=== PATIENT | male | born 1965 | race Caucasian/White ===

== ENCOUNTER 2023-09-16 08:02 | Emergency (ER) | payer OTHER ==
[~2023-09-16] VITALS: Ht 182.9 cm; Wt 112.0 kg
[~2023-09-16 08:02] MED LIST: IBUPROFEN200 M1 PO; LOTREL 10-20 M1 EACH PO; MEDROL4 M1 PO; NORCO 5-325 TA1 EACH PO; PERCOCET 5-3251 EACH PO; PERCOCET 7.5-31 EACH PO; PRILOSEC20 MG PO; THALITONE15 MG PO
[2023-09-16 08:24] LABS: BILIRUBIN, URINE NEGATIVE (negative); BLOOD/HGB, URINE NEGATIVE (Negative); KETONE, URINE NEGATIVE (Negative); LEUK ESTERASE, URINE NEGATIVE (negative); NITRITE, URINE NEGATIVE (negative); PH, URINE 7.5 (5-7)
[2023-09-16 08:50] LABS: BASOPHILS 0.6 % (0-2); EOSINOPHILS 0.2 % (0-6); HEMATOCRIT 41.8 % (35.0-50.0); HEMOGLOBIN 14.6 g/dL (12.0-18.0); LYMPHOCYTES 7.2 % (24-44); MCH 30.7 (27-36); MCHC 35.1 g/dl (30-36); MCV 87.5 fl (81-99); MONOCYTES 6.8 % (0-12); NEUTROPHILS 85.2 % (39-80); PLATELET COUNT 256 K/uL (140-440); RBC 4.78 M/ul (4.3-5.7); RDW 12.9 (10.5-15.0)
[2023-09-16 08:59] LABS: ALBUMIN 3.9 g/dL (3.4-5.0); ALBUMIN/GLOBULIN RATIO 1.34 (1.1-2.4); ANION GAP 12.1 (7-21); BILIRUBIN, TOTAL 1.5 ng/dL (0.2-1.0); BUN/CREATININE RATIO 14.13 (6.0-28.6); CALCIUM 8.6 mg/dL (8.5-10.1); CREATININE, SERUM 0.92 mg/dL (0.70-1.30); POTASSIUM 3.1 mmol/L (3.5-5.1); PROTEIN, TOTAL 6.8 g/dL (6.4-8.2)
[2023-09-16] MEDS ORDERED: AMOX TR-K CLV1 EAC1 PO (09:52)
[2023-09-16 10:06] VITALS: BP 131/82
== END 2023-09-16 10:05 | disposition home or self-care (01) ==
LOC: ED 08:02
PROVIDERS: Emergency Medicine
DX: K57.32 Diverticulitis of large intestine without perforation or abscess without bleeding (principal); I10 Essential (primary) hypertension; Z79.899 Other long term (current) drug therapy
CPT/HCPCS: 36415; 74177; 80053; 81003; 83690; 85025; 99284-25; Q9967

== ENCOUNTER 2024-02-14 06:20 | Day surgery (SDC) | payer OTHER ==
[~2024-02-14] VITALS: Ht 182.9 cm; Wt 104.5 kg
[~2024-02-14 06:20] MED LIST changes: +AMOX TR-K CLV1 EAC1 PO; +ATORVASTATIN CA40 MG PO; +MIDAZOLAM HCL 5 MG/5 ML VIAL IV PRN; +POTASSIUM CHLO10 ME1 PO; +PREDNISOLONE ACE5 ML OD; +TIMOLOL MALEATE5 M2 OD; +fentaNYL citrate 100 MCG/2 ML VIAL IV PRN
[2024-02-14 06:33] VITALS: BP 133/75
[2024-02-14] MEDS ORDERED: fentaNYL citrate 100 MCG/2 ML VIAL ONE (06:49)
[2024-02-14] MEDS ORDERED: MIDAZOLAM HCL 5 MG/5 ML VIAL ONE (06:49)
--- NOTE | 2024-02-14 06:55 | NUR ---
SISTER IN ROOM WITH PT. DENIES ANY NEEDS.
[2024-02-14] MEDS ORDERED: IBLOOD GLUCOSE TEST STRIP 1 EA TEST VI PRN (07:00)
[2024-02-14] MEDS ORDERED: LACTATED RINGER'S 1,000 ML IV SCH (07:00)
[2024-02-14] MEDS ORDERED: LIDOCAINE HCL 1% 5 ML SDV INJ ONE (07:00)
--- NOTE | 2024-02-14 07:17 | NUR ---
VISITED DURING SPIRITUAL CARE ROUNDS. PT IN GOOD SPIRITS, SUPPORTED BY FAMILY IN ROOM; STRONG RELATIONAL AND MONA RESOURCES IN EVIDENCE. PAPER PRODUCTION ENGINEER PROVIDED SUPPORTIVE PRESENCE, HOSPITALITY, PRAYER. PT AND FAMILY EXPRESSED GRATITUDE.
--- NOTE | 2024-02-14 08:32 | NUR ---
02/14/24 0832 Althea Phillip 0807- PT ARRIVES TO THE PACU ON LEFT SIDE WITH 1L OF 02 WITH A NC. RESP EVEN AND UNLABORED. PT HAS EYES OPEN AND IS TALKING WITH RN'S. VSS. ABDOMEN IS SOFT AND NONDISTENDED. PT IS ENCOURAGES TO DEEP BREATHE AND PASS GAS. PT VERBALIZES UNDERSTANDING. ALL MONITORS IN PLACE. LR INFUSING IN RIGHT HAND. 0815- PT EASILY FALLS BACK TO SLEEP AND IS ENCOURAGED OFF AND ON TO BREATHE DEEPLY. PT ROLLS TO BACK INDEPENDENTLY. PT EASILY ARROUSABLE WITH VERBAL STIMULI.
[2024-02-14 08:42] VITALS: BP 93/59
--- NOTE | 2024-02-16 12:11 | OR ---
[facility] [address] [place], [place] [address] Signed DATE OF OPERATION: 02/14/2024 SURGEON: Susie Morris MD PREOPERATIVE DIAGNOSIS: Colon screening. POSTOPERATIVE DIAGNOSES: 1. Diverticulosis sigmoid. 2. Small polyps of sigmoid and rectum. PROCEDURE: Total colonoscopy to cecum with cold morcellation polypectomy x2. ANESTHESIA: Intravenous sedation; fentanyl 150 mcg, Versed 8 mg. INDICATION: This 58-year-old white man is a patient of ANDRES Hahn. He is referred for screening colonoscopy. He has no current symptoms of bleeding, diarrhea or constipation and no family history of colon cancer. His father did have polyps as did his sister. He is admitted at this time to undergo colonoscopy for screening. He understands the risk of bleeding, infection, and perforation. FINDINGS: The prep was good. Complete colonoscopy was undertaken of the cecum with full intubation of the cecum. He had diverticula of the sigmoid and left colon. There were two very small polyps, one in the sigmoid and the other in the rectum, both excised completely. There were no other findings of note. PROCEDURE IN DETAIL: The patient was brought to the endoscopy suite and placed in the lateral decubitus position, given intravenous sedation to the point of slurred speech and nystagmus. Digital rectal examination was normal. The Olympus video colonoscope was passed in the rectum and manipulated throughout the colon ultimately intubating the cecum itself. The ileocecal valve and appendiceal orifice were normal. Scope was withdrawn from that point and examination showed no sign of abnormality into the left colon where diverticula were once again seen and at the sigmoid, a small polyp, possibly hyperplastic, this was excised with cold morcellation technique. Further withdrawal showed another similar such polyp in the rectum also excised. Retroflexed view was Electronically Signed By: USSIE MORRIS MD 02/16/24 1211 PATIENT NAME: MIRACLE VIGIL OPERATIVE REPORT DATE OF : 63 REPORT #: [id number] PHYSICIAN: SUSIE MORRIS MD PCP: LUIS BABB PAC REPORT IS CONFIDENTIAL AND NOT TO BE RELEASED WITHOUT AUTHORIZATION [facility] [address] [place], [place] [address] Signed normal. The scope was removed and the patient was taken to the recovery room in good condition. CONCLUDING DIAGNOSES: Polyps x2 and diverticulosis. PLAN: Recommend repeat colonoscopy in seven years based on recent guidelines, sooner if symptoms should occur. He will return to the ongoing care of NADRES Hahn. MD DIDIER Wayne/MODL /[id number] cc: ANDRES Hahn. Copies: ~ Electronically Signed By: SUSIE MORRIS MD 02/16/24 1211 PATIENT NAME: MIRACLE VIGIL OPERATIVE REPORT DATE OF : 63 REPORT #: [id number] PHYSICIAN: SUSIE MORRIS MD PCP: LUIS BABB PAC REPORT IS CONFIDENTIAL AND NOT TO BE RELEASED WITHOUT AUTHORIZATION
== END 2024-02-14 08:55 | disposition home or self-care (01) ==
LOC: DS 06:20
PROVIDERS: ATTEND Surgery
PROC: 0DBN8ZX Excision of Sigmoid Colon, Via Natural or Artificial Opening Endoscopic, Diagnostic (ICD-10-PCS; 2024-02-14)
PROC: 0DBP8ZX Excision of Rectum, Via Natural or Artificial Opening Endoscopic, Diagnostic (ICD-10-PCS; principal; 2024-02-14 07:30)
DX: Z12.11 Encounter for screening for malignant neoplasm of colon (principal); K63.5 Polyp of colon; K62.1 Rectal polyp; K57.30 Diverticulosis of large intestine without perforation or abscess without bleeding; I10 Essential (primary) hypertension; Z79.899 Other long term (current) drug therapy; Z87.19 Personal history of other diseases of the digestive system
CPT/HCPCS: 88305; 99153; G0500; J2250; J3010; J7121

== ENCOUNTER 2025-03-15 07:55 | Day surgery (SDC) | payer OTHER ==
[~2025-03-15] VITALS: Ht 182.9 cm; Wt 109.0 kg
[~2025-03-15 07:55] MED LIST changes: +AMLODIPINE-BEN1 EAC5 PO; +BRIMONIDINE TART5 ML OD; +CEFAZOLIN SODIUM 2 GM in SODIUM CHLORIDE 0.9% 100 ML IV SCH; +CHLORTHALIDONE25 MG PO; +DORZOLAMIDE-TIM10 ML OD; +HEParin SOD (PORCINE) 5,000 UNIT/ML SDV SUB-Q SCH; +IBLOOD GLUCOSE TEST STRIP 1 EA TEST VI PRN; +LACTATED RINGER'S 1,000 ML IV SCH; +LIDOCAINE HCL 1% 5 ML SDV INJ ONE; -MIDAZOLAM HCL 5 MG/5 ML VIAL IV PRN; +PRILOSEC OTC20 MG PO; -PRILOSEC20 MG PO; -fentaNYL citrate 100 MCG/2 ML VIAL IV PRN
[2025-03-15 08:08] VITALS: BP 148/87
[2025-03-15] MEDS ORDERED: DAILY VALUE1 EACH PO (08:11)
[2025-03-15] MEDS ORDERED: SEVOFLURANE 250 ML BTL INH ONE (10:31)
[2025-03-15] MEDS ORDERED: KETAMINE in NS 50 MG/5 ML SYR ONE (10:48)
[2025-03-15] MEDS ORDERED: fentaNYL citrate 100 MCG/2 ML VIAL ONE (10:48)
[2025-03-15] MEDS ORDERED: LIDOCAINE HCL 4% 5 ML AMP ONE (10:49)
[2025-03-15] MEDS ORDERED: ACETAMINOPHEN 1,000 MG/100 ML VIAL ONE (10:52)
[2025-03-15] MEDS ORDERED: DEXAMETHASONE SOD PHOS 4 MG/ML VIAL ONE (10:52)
[2025-03-15] MEDS ORDERED: ROCURONIUM BROMIDE 50 MG/5 ML SYR ONE ×3 (10:52→12:34)
[2025-03-15] MEDS ORDERED: LIDOCAINE HCL 2% 5 ML SDV ONE (10:52)
[2025-03-15] MEDS ORDERED: HYDROmorphone HCL 1 MG/ML SYR IV PRN (11:30)
[2025-03-15] MEDS ORDERED: NALOXONE HCL 0.4 MG SYR IV PRN ×2 (11:30→13:15)
[2025-03-15] MEDS ORDERED: KETOROLAC TROMETHAMINE 30 MG/ML VIAL IV PRN (11:30)
[2025-03-15] MEDS ORDERED: IBLOOD GLUCOSE TEST STRIP 1 EA TEST VI PRN (11:30)
[2025-03-15] MEDS ORDERED: fentaNYL citrate 50 MCG/ML SDV IV PRN (11:30)
[2025-03-15] MEDS ORDERED: SUGAMMADEX SODIUM 200 MG/2 ML ML ONE (12:12)
--- NOTE | 2025-03-15 12:56 | NUR ---
03/15/25 1256 Sheets,Christina 1246 PT ARRIVED TO PACU, PT WAKES EASILY TALKING TO RN. RN REORIENTING PT TO PACU. VSS. 1250 O2 REMOVED AND PT REPORTS 1/10 PAIN AND TOLERABLE AT THIS TIME. PT COUGHING OFF AND ON. RN HELPS PT BRACE SURGICAL SITE WHILE COUGHING 1255 O2 DECREASED TO 88% AND DEEP BREATHING ENCOURAGED, O2 INCREASED TO LOW 90S.
[2025-03-15] MEDS ORDERED: IBUPROFEN600 MG PO (13:10)
[2025-03-15] MEDS ORDERED: OXYCODON-ACETA1 EAC2 PO (13:11)
[2025-03-15] MEDS ORDERED: ACETAMINOPHEN500 MG PO (13:12)
[2025-03-15] MEDS ORDERED: IBUPROFEN 600 MG TAB PO PRN (13:15)
[2025-03-15] MEDS ORDERED: PROCHLORPERAZINE EDISYLATE 10 MG/2 ML VIAL IV PRN (13:15)
[2025-03-15] MEDS ORDERED: ACETAMINOPHEN 500 MG TAB PO PRN (13:15)
[2025-03-15] MEDS ORDERED: LACTATED RINGER'S 1,000 ML IV SCH (13:15)
[2025-03-15] MEDS ORDERED: OXYCODONE/APAP 7.5/325 TAB PO PRN (13:15)
[2025-03-15 13:28] VITALS: BP 135/85
--- NOTE | 2025-03-15 13:31 | NUR ---
1322- PT IS TRANSFERED TO DAY SURGERY. BEDSIDE REPORT RECEIVED. PT REPORTS 2/10 PAIN AND IS A LITTLE DIZZY BUT DENIES NAUSEA. PT SIPPING ON WATER. LR IFUSING. PT IS LAUGHING AND JOKING WITH FAMILY AT BEDSIDE. VSS. CALL LIGHT IN REACH AND BED IS LOCKED IN THE LOWEST POSITION. DISCHARGE CRITERIA DISCUSSED AND PT IS UNDERSTANDING. PT REQUESTING APPLE SAUCE AND COFFEE.
[2025-03-15 14:22] VITALS: BP 147/78
--- NOTE | 2025-03-15 14:25 | NUR ---
1420- PT PRESCRIPTION GIVEN TO SISTER PER REQUEST. VSS. SURGICAL SITE ASSESSED. PT IS AWAKE AND TALKING WITH RN AND FAMILY AT BEDSIDE. PT REPORTS PAIN IS A 2/10. PT DENIES NAUSEA. PT WAS ABLE TO EAT APPLE SAUCE AND DRINKING WATER AND COFFEE. QUESTIONS AND CONCERNS ANSWERED. DISCHARGE PAPERWORK GONE OVER.
--- NOTE | 2025-03-15 15:15 | NUR ---
1425- PT IS ABLE TO MAINTAIN O2 LEVELS AT THIS TIME. O2 TURNED OFF.
[2025-03-15 15:20] VITALS: BP 157/81
--- NOTE | 2025-03-15 15:23 | NUR ---
1520- PT IS IN THE STRETCHER. PT DENIES NAUSEA AND REPORTS 2/10 PAIN. PT WOULD LIKE TO "TRY" TO USE THE RESTROOM. VSS. IV IS LR LOCKED. BED IS LOCKED IN THE LOWEST POSITION AND CALL LIGHT IN REACH.
--- NOTE | 2025-03-15 15:45 | NUR ---
1530- PT SITTING UP AT THE SIDE OF THE BED. PT UP TO USE THE RESTROOM WITH A STEADY AND EVEN GAIT. PT IS ABLE TO VOID 350ML OF CLEAR YELLOW URINE AND AMBULATE BACK TO HIS ROOM INDEPENDENTLY. PT GETTING DRESSED WITH RN ASSISTANCE. 1540- PT IS DRESSED. IV REMOVED. PT HAS ALL BELONGINGS. ALL QUESTIONS AND CONCERNS ANSWERES. PT IS ABLE TO TRANSFER TO HOSPITAL WHEELCHAIR WITH NO ISSUES. PT DC'S FROM DAY SURGERY AT THIS TIME.
--- NOTE | 2025-03-16 12:14 | OR ---
[facility] [address] [place], [place] [address] Signed DATE OF OPERATION: 03/15/2025 SURGEON: Susie Morris MD PREOPERATIVE DIAGNOSIS: Symptomatic right inguinal hernia. POSTOPERATIVE DIAGNOSIS: Symptomatic right inguinal hernia, indirect and large cord lipoma. PROCEDURES: 1. Repair of right inguinal hernia with implantation of Prolene mesh underlay technique. 2. Excision of a large cord lipoma. ANESTHESIA: General endotracheal; Moisés Funez, DIRECTOR GLOBAL SALES and multiple 10 mL of 0.25% Marcaine with epinephrine. INDICATION: This 235 pounds white man is a patient Luis Liendiamond and was referred for consideration of right inguinal hernia. He had undergone a colonoscopy a year ago and did well by that. He has developed a bulge in the right groin which is increasingly uncomfortable. Clinical examination confirms a right inguinal hernia which is reducible. He has no urinary outlet obstructive symptoms though he has had an episodic cough recently which has cleared entirely. He has no constipation problems. He is admitted at this time to undergo repair of the right inguinal hernia. He understands the risk of bleeding, infection, recurrence, chronic pain, and other unforeseen complications. Understanding this, he wished to proceed. FINDINGS: A very bulky hernia was noted indeed. Near attenuation of the external oblique was noted. Cord was smooth. Once mobilized from the floor, showed an indirect hernia sac which was wide and funnel shaped, but did represent dominantly indirect hernia. Additionally, there was a rather large cord lipoma which was also excised. Repair consisted of invagination of the hernia sac with implantation of Prolene mesh in an underlay technique. Excision of cord lipoma was accomplished as well. DESCRIPTION OF PROCEDURE: The patient was brought to the operating room, given a general endotracheal anesthetic. Preoperative antibiotic of Ancef was given. Sequential compression device stockings Electronically Signed By: SUSIE MORRIS MD 03/16/25 1214 PATIENT NAME: MIRACLE VIGIL OPERATIVE REPORT DATE OF : 63 REPORT #: [id number] PHYSICIAN: SUSIE MORRIS MD PCP: LUIS BABB PAC REPORT IS CONFIDENTIAL AND NOT TO BE RELEASED WITHOUT AUTHORIZATION [facility] [address] [place], [place] [address] Signed used and heparin subcutaneously administered. The abdomen was clipped and prepared with a chlorhexidine solution and draped sterilely. A very bulky right groin hernia was easily identified. An incision was made cephalad to the pubic tubercle. Dissection was carried through the subcutaneous tissue with electrocautery. Lateral superficial inferior epigastric vessels were secured and divided and ultimately tied with 2-0 Vicryl suture. Kellie layer was divided with electrocautery revealing an external oblique. A very bulky cord and hernia sac were noted emanating from the external ring. The external oblique was incised along its fibers revealing the underlying cord which was quite bulky. Cord was meticulously dissected free from the floor and ultimately encircled with a Howe drain. A bulky fat was noted proximally and using blunt and electrocautery dissection cremasteric muscle fibers were divided, ultimately identifying a very bulky lateral cord lipoma and medially a relatively wide funnel mouth indirect sac. Both were free from the cord preserving cord structures. The large lipoma cord was secured with two separate hemostats at the base, amputated and passed for Pathology and stumps secured with 2-0 Vicryl. Dissection of the hernia sac from the cord was undertaken in a meticulous way ultimately identifying well the deepest portion of the hernia sac, which was lateral to the inferior epigastric artery and therefore indirect sac technically. The sac was not excessively long, but was blunt and wide and on that basis was simply invaginated into the properitoneal space. An Allis clamp was applied to the tendon of the transversus abdominis and under tension the floor of the canal was incised with electrocautery. The properitoneal fat was bluntly. An elliptical segment of Prolene ProGrip mesh was configured and secured in an underlay technique with interrupted 2-0 Prolene sutures. A defect was cut in the graft to accommodate the cord structures. Lateral fixation was careful to avoid any entrapment of neurovascular bundles. 10 mL of 0.25% Marcaine with epinephrine was injected locally after clearing the wound with irrigation. Cord structures were quite viable. Good repair has been accomplished in the floor of the canal. The spermatic cord was returned to the inguinal canal. The external oblique reapproximated with running 2-0 Vicryl suture. Careful inspection for ilioinguinal nerve branches was not difficult, but the aforementioned nerves were not divided or entrapped closure. Once the external oblique was closed with running 2-0 Vicryl Kellie layer similarly reapproximated with interrupted 2-0 Vicryl. A 10 mL of 0.25% Marcaine with epinephrine had been injected locally. The skin was closed with running subcuticular 3-0 Vicryl. Steri-Strips were applied as was an Acticoat dressing. MD DIDIER Wayne/JOAN Electronically Signed By: SUSIE MORRIS MD 03/16/25 1214 PATIENT NAME: MIRACLE VIGIL OPERATIVE REPORT DATE OF : 63 REPORT #: [id number] PHYSICIAN: SUSIE MORRIS MD PCP: LUIS BABB PAC REPORT IS CONFIDENTIAL AND NOT TO BE RELEASED WITHOUT AUTHORIZATION [address] [place], [place] [address] Signed /[id number] cc: Luis Babb PA-C Copies: ~ Electronically Signed By: SUSIE MORRIS MD 03/16/25 1214 PATIENT NAME: MIRACLE VIGIL OPERATIVE REPORT DATE OF : 63 REPORT #: [id number] PHYSICIAN: SUSIE MORRIS MD PCP: LUIS BABB PAC REPORT IS CONFIDENTIAL AND NOT TO BE RELEASED WITHOUT AUTHORIZATION
--- NOTE | 2025-03-20 18:56 | PATH ---
[facility] [address] [place], [place] [address] Signed SPECIMEN(S): A LIPOMA OF CORD SPECIMEN SOURCE: A. LIPOMA OF CORD CLINICAL HISTORY: Right inguinal hernia FINAL PATHOLOGIC DIAGNOSIS: Soft tissue, right inguinal area, herniorrhaphy: - Benign adipose tissue containing 2 lymph nodes, 2.8 and 0.7 cm in greatest dimension. - Negative for primary or metastatic malignancy. 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 SDL MICROSCOPIC EXAMINATION: Histologic sections of all submitted blocks are examined by light microscopy. These findings, together with the gross examination, support the pathologic diagnosis. GROSS DESCRIPTION: The specimen, labeled and designated "Girish RoqueJessika, lipoma of cord," is received in formalin and consists of a 11.2 x 4.8 x 1.5 cm yellow soft tissue with a thin translucent membrane capsule. The external surface is inked black. Sectioning reveals a homogenous, soft and yellow cut surface. No hemorrhage or necrosis is seen. There are 2 lymph node candidates present ranging from 0.7 to 2.8 cm in greatest dimension. Station Inspector sections are submitted in (A1). AA (under the direct supervision of a pathologist) The Gross Description was prepared using a voice recognition system. The report was reviewed for accuracy; however, sound-alike word errors, addition and/or deletions may occur. If there are any questions about this report, please contact Client Services. ADDITIONAL NOTES: Immunohistochemical and/or in situ hybridization studies if performed in this case included appropriate positive controls that reacted as expected. This test was developed and its performance characteristics determined by [facility]. It has not been cleared or approved by the U.S. Food and Drug Administration. The FDA has determined that PATIENT NAME: MIRACLE VIGIL PATHOLOGY DATE OF : 63 REPORT #: [id number] PHYSICIAN: HIRA SOLARES PCP: LUIS BABB PAC REPORT IS CONFIDENTIAL AND NOT TO BE RELEASED WITHOUT AUTHORIZATION [facility] [address] [place] [facility] [place] [address] Signed such clearance or approval is not necessary. This test is used for clinical purposes. It should not be regarded as investigational or for research. [facility] is certified under the Clinical Laboratory Improvement Amendments of 1988 (CLIA) as qualified to perform high complexity clinical laboratory testing. PERFORMING LABORATORY: Technical component was performed by [facility], [address] [place] [id number] (CLIA# [id number]). Professional interpretation was performed by [facility], [address] [place] [id number] (CLIA#: [id number]). Diagnostician: Lina Brunner MD Pathologist Electronically Signed 03/20/2025 Copies: ~ PATIENT NAME: MIRACLE VIGIL PATHOLOGY DATE OF : 63 REPORT #: [id number] PHYSICIAN: HIRA SOLARES PCP: LUIS BABB PAC REPORT IS CONFIDENTIAL AND NOT TO BE RELEASED WITHOUT AUTHORIZATION
== END 2025-03-15 15:40 | disposition home or self-care (01) ==
LOC: DS 07:55
PROVIDERS: ATTEND Surgery
PROC: 0VBF0ZZ Excision of Right Spermatic Cord, Open Approach (ICD-10-PCS; 2025-03-15)
PROC: 0YU50JZ Supplement Right Inguinal Region with Synthetic Substitute, Open Approach (ICD-10-PCS; principal; 2025-03-15 09:00)
DX: K40.90 Unilateral inguinal hernia, without obstruction or gangrene, not specified as recurrent (principal); D17.6 Benign lipomatous neoplasm of spermatic cord; I10 Essential (primary) hypertension; M48.07 Spinal stenosis, lumbosacral region; H54.415A Blindness right eye category 5, normal vision left eye; E78.5 Hyperlipidemia, unspecified; Z79.899 Other long term (current) drug therapy
CPT/HCPCS: 00840; C1781; J0131; J0688; J1100; J1644; J2003; J2405; J2704; J3010; J3490; J7121